=== PATIENT | male | born 1990 | race Caucasian/White ===

== ENCOUNTER 2024-02-24 12:46 | Outpatient (REF) | payer MEDICAID, SELFPAY ==
[2024-02-25 04:15] LABS: HBS Num1 9.17 mIU/mL (0-7.99)
[2024-02-25 10:38] LABS: HBS Num2 9.85 mIU/mL (0-7.99); HBS Num3 9.72 mIU/mL (0-7.99); ~Hepatitis B Surface Antibody GRAYZONE (Nonreactive)
[2024-02-25 19:48] LABS: Mumps Virus IgG Antibody <9.00 AU/mL; Rubella IgG Antibody 1.09 Index
[2024-02-27 00:59] LABS: TS Negative Control Passed; TS Panel A 0; TS Panel B 0; TS Positive Control Passed; TSpotTB Negative (Negative)
== END 2024-02-24 12:47 | disposition home or self-care (01) ==
LOC: HO.CHCLDS 12:46
PROVIDERS: Visit Provider Student in an Organized Health Care Education/Training Program
DX: Z00.00 Encounter for general adult medical examination without abnormal findings (principal); R76.0 Raised antibody titer; Z11.1 Encounter for screening for respiratory tuberculosis
CPT/HCPCS: 36415; 86481; 86706; 86735; 86762; 86765; 86787

== ENCOUNTER 2024-04-23 09:24 | Outpatient (REF) | payer MEDICAID, SELFPAY ==
[2024-04-23 14:17] LABS: Alanine Aminotransferase 42 U/L (0-40); Albumin Level 4.4 g/dL (3.5-5.0); Alkaline Phosphatase 72 U/L (39-117); Anion Gap 14 (12-20); Aspartate Amino Transferase 30 U/L (5-37); Bilirubin Direct 0.2 mg/dL (0.0-0.5); Bilirubin Total 0.4 mg/dL (0.0-1.0); Blood Urea Nitrogen 13 mg/dL (9-16); Calcium 9.3 mg/dL (8.4-10.2); Carbon Dioxide 25 mmol/L (22-29); Chloride 103 mmol/L (96-108); Cholesterol 198 mg/dL (<200); Estimated Glomerular Filt Rate > 60; Glucose Random 84 mg/dL (60-115); HDL Cholesterol 40 mg/dL (>40); LDL Cholesterol Calculated 127 mg/dL (<100); Potassium 3.6 mmol/L (3.3-5.1); Sodium 138 mmol/L (135-145); Total Protein 7.8 g/dL (6.5-8.0); Triglycerides 159 mg/dL (<150)
[2024-04-24 03:32] LABS: HIV AB/AG Nonreactive (Nonreactive); HIV Num 1 0.06 S/CO (0.00-0.99); ~HepC Num1 0.14 S/CO (0.00-0.79); ~Hepatitis C Antibody Nonreactive (Nonreactive)
== END 2024-04-23 09:25 | disposition home or self-care (01) ==
LOC: HO.CHCLDS 09:24
PROVIDERS: Visit Provider Student in an Organized Health Care Education/Training Program
DX: Z11.3 Encounter for screening for infections with a predominantly sexual mode of transmission (principal); I10 Essential (primary) hypertension
CPT/HCPCS: 36415; 80048; 80061; 80076; 86803; 87389

== ENCOUNTER 2024-04-28 16:13 | Outpatient (REF) | payer MEDICAID, SELFPAY ==
[2024-04-29 22:54] LABS: Rubeola IgG (Measles) >300.00 AU/mL
== END 2024-04-28 16:14 | disposition home or self-care (01) ==
LOC: HO.CHCLDS 16:13
PROVIDERS: Visit Provider Student in an Organized Health Care Education/Training Program
DX: Z01.84 Encounter for antibody response examination (principal)
CPT/HCPCS: 36415; 86735; 86762; 86765